=== PATIENT | male | born 1955 | race American Indian/Alaskan Native ===

== ENCOUNTER 2017-10-14 10:40 | Day surgery (SDC) | payer OTHER ==
[~2017-10-14 10:40] MED LIST: DILAUDID IV PRN; NACL 0.9% 1000 ML 1,000 ML IV SCH
--- NOTE | 2017-10-14 11:34 | Anesthesia Day of Surgery ---
Anesthesia Day of Surgery - Day of Surgery Patient Examined: Yes Patient H&P Reviewed: Yes Patient is NPO: Yes Beta Blockers: No Cardiac Clearance: Yes ([place] heart) Pulmonary Clearance: No
--- NOTE | 2017-10-14 11:34 | Anesthesia Consultation ---
Anesthesia Consult and Med Hx Date of service: 10/14/17 - Airway Anesthetic Teeth Evaluation: Poor ROM Head & Neck: Adequate Mental/Hyoid Distance: Adequate Mallampati Class: Class II Intubation Access Assessment: Probably Good - Pulmonary Exam CTA: Yes - Cardiac Exam Cardiac Exam: RRR - Pre-Operative Health Status ASA Pre-Surgery Classification: ASA4 Proposed Anesthetic Plan: General - Pre-Anesthesia Comment Pre-Anesthesia Comments: HX CHF/Hx implantable medtronic monitoring device 3 months ago - Pulmonary Hx Smoking: No Hx Pneumonia: Yes (07/2017- RESOLVED) Hx Sleep Apnea: No (JORDAN PRE SCREEN HIGH RISK) - Cardiovascular System Hx Hypertension: Yes (X 6 YRS) Hx Coronary Artery Disease: Yes Hx Cardia Arrhythmia: Yes (imolantable cardiac monitoring device 3 months ago) - Central Nervous System Hx Neuromuscular Disorder: No (hx of dementia) 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
[2017-10-14 12:37] LABS: Basophils # (Auto) 0.1 K/mm3 (0.0-0.1); Basophils % (Auto) 0.9 % (0.0-1.8); Eosinophils # (Auto) 0.1 K/mm3 (0.0-0.4); Hematocrit 34.2 % (35.5-45.6); Hemoglobin 11.6 gm/dl (11.8-15.2); Lymphocytes # (Auto) 1.6 K/mm3 (1.2-5.4); Lymphocytes % (Auto) 24.8 % (13.4-35.0); Mean Corpuscular HGB Conc 34 % (32-34); Mean Corpuscular Hemoglobin 30 pg (28-32); Mean Corpuscular Volume 87 fl (84-94); Monocytes # (Auto) 0.5 K/mm3 (0.0-0.8); Monocytes % (Auto) 7.3 % (0.0-7.3); Platelet Count 152 K/mm3 (140-440); Red Blood Count 3.92 M/mm3 (3.65-5.03); Red Cell Distribution Width 15.7 % (13.2-15.2)
[2017-10-14 12:49] LABS: Calcium 9.7 mg/dL (8.4-10.2)
[2017-10-14] MEDS ORDERED: ROCEPHIN 1,000 MG in NACL 0.9% 50 ML IV NR (12:53)
[2017-10-14] MEDS ORDERED: XYLOCAINE 1% MPF 5 mL INFILTRATI ONE (12:55)
[2017-10-14] MEDS ORDERED: SUBLIMAZE ONE (13:11)
[2017-10-14] MEDS ORDERED: DIPRIVAN 10 MG/ML IV ONE (13:11)
[2017-10-14] MEDS ORDERED: XYLOCAINE MPF 2% ONE (13:11)
[2017-10-14] MEDS ORDERED: ROCEPHIN/NS 1 GM/50 ML 1 GM/50 ML BAG IV SCH (13:30)
[2017-10-14] MEDS ORDERED: WATER FOR IRRIG STERILE IR ONE ×2 (13:38)
[2017-10-14] MEDS ORDERED: ePHEDrine 50 MG/5 ML-0.9% NACL IV ONE (13:42)
[2017-10-14] MEDS ORDERED: ZOFRAN ONE (14:03)
--- NOTE | 2017-10-14 14:15 | Short Stay Summary ---
Short Stay Documentation Date of service: 10/14/17 - History H&P: obtained from office - Allergies and Medications Current Medications: Allergies No Known Allergies Allergy (Verified 07/08/13 07:31) Home Medications Medication Instructions Recorded Confirmed Last Taken Type Amlodipine Besylate 10 mg PO DAILY 07/08/13 10/03/17 07/06/13 History 5mg Aspirin [Aspirin BABY CHEW TAB] 81 mg PO DAILY 07/08/13 10/03/17 07/07/13 History 81mg Atorvastatin [Lipitor] 80 mg PO HS 07/08/13 10/03/17 07/05/13 History 40mg Metoprolol Xl [Metoprolol 25 mg PO DAILY 07/08/13 10/03/17 07/06/13 History SUCCINATE ER TAB] 25mg Clopidogrel Bisulfate [Plavix] 75 mg PO DAILY 10/03/17 10/03/17 Unknown History Ferrous Sulfate 324 mg PO DAILY 10/03/17 10/03/17 Unknown History Furosemide [Lasix TAB] 40 mg PO BID 10/03/17 10/03/17 Unknown History Quetiapine Fumarate [SEROquel] 50 mg PO QDAY 10/03/17 10/03/17 Unknown History metFORMIN [Glucophage] 500 mg PO QDAY 10/03/17 10/03/17 Unknown History Active Medications Hydromorphone HCl (Dilaudid) 0.25 mg IV Q10MIN PRN PRN Reason: Pain, Moderate (4-6) Stop: 10/14/17 16:00 Sodium Chloride (Nacl 0.9% 1000 Ml) 1,000 mls @ 42 mls/hr IV DIRECT KRISTIN Last Admin: 10/14/17 12:49 Dose: 42 mls/hr Ceftriaxone Sodium (Rocephin/Ns 1 Gm/50 Ml) 1 gm in 50 mls @ 100 mls/hr IV PREOP KRISTIN Stop: 10/14/17 23:59 - Brief post op/procedure progress note Date of procedure: 10/14/17 Pre-op diagnosis: elev psa Post-op diagnosis: same Procedure: cysto rpg prost bx Anesthesia: GETA Findings: PUS 52 cc lg lat lobe w/ some J hooking on rpg Surgeon: IRENE SINGH Estimated blood loss: minimal Pathology: list (prost bx x12) Specimen disposition: to lab Condition: stable - Hospital course Hospital course: or pacu home - Disposition Condition at discharge: Good Disposition: DC-01 TO HOME OR SELFCARE Short Stay Discharge Plan Activity: advance as tolerated Diet: advance as tolerated Follow up with: IRENE SINGH MD [Staff Physician] - 7 Days
[2017-10-14] MEDS ORDERED: D50W (25GM) Syringe IV ONE (15:04)
--- NOTE | 2017-10-14 15:09 | Fluoroscopy Report ---
Retrograde pyelogram: Elevated PSA. Injection of contrast was made bilaterally and the distal ureters. There is good opacification of both ureters and intrarenal collecting systems with no abnormality identified. Impression: Normal exam.
[2017-10-14 18:26] VITALS: BP 142/77
--- NOTE | 2017-10-17 16:34 | Post Anesthesia Evaluation ---
- Post Anesthesia Evaluation Patient Participated: Yes Airway Patent: Yes Stable Respiratory Function: Yes Nausea/Vomiting: No Temp > 96.8F: Yes Pain Manageable: Yes Adequeate Hydration: Yes Anesthesia Complications: No Block Receding Appropriately: No Patient on Ventilator: No
--- NOTE | 2017-10-20 09:05 | Ultrasound Report ---
ULTRASOUND INTRAOPERATIVE GUIDANCE: 10/14/17 CLINICAL: Elevated PSA FINDINGS: Transrectal ultrasound guidance was provided. For more details, please refer to the operative report.
--- NOTE | 2017-11-02 19:33 | Operative Report ---
PREOPERATIVE DIAGNOSES: Elevated PSA and benign prostatic hypertrophy. POSTOPERATIVE DIAGNOSES: Elevated PSA and benign prostatic hypertrophy. PROCEDURES: Cystoscopy, RPG, prostate biopsy. ANESTHESIA: General. FINDINGS: Prostate ultrasound, 52 mL large lateral lobes with some J hooking on RPG. SURGEON: Dylon Pacheco M.D. ESTIMATED BLOOD LOSS: Minimal. PATHOLOGY: Prostate biopsy x 12. SPECIMENS: To lab. CONDITION: Stable. IMPLANTS: None. COMPLICATIONS: None. CLINICAL INDICATIONS: The patient was counseled RCBA, antibiotics, SCDs, counseled options, awake versus anesthetic, cystoscopy and the increased risk and other risks given his comorbidities. He elected only wanted anesthetic and due to some urinary symptoms, elected to proceed, had antibiotics, and SCDs, standard prep. DESCRIPTION OF PROCEDURE: The patient was transferred to OR suite in the supine position, anesthesia, dorsal lithotomy, prepped and draped in standard fashion. A 22-Korean scope passed, normal penile, and bulbar urethra. Upon inspecting the prostatic urethra, there were large not just moderately, but large lateral lobes with mild median lobe and some hooking. At this point, the scope was passed. Pancystoscopy 30 and 70 degree lens demonstrated no tumors, lesions, or other abnormality. Right UO cannulated 8 [place] cone-tipped catheter, contrast injected. Normal right distal ureter, proximal ureter, renal pelvis calyces, repeated on the left side with similar normal findings. Of course, there were no filling defects or hydro, but there was an abnormality on both sides. There was J hooking of both ureters consistent with his BPH and extension towards the bladder, but that was the only abnormality. At this point, the scope was slowly withdrawn. Transrectal ultrasound position in place. Prostate was measured, it was symmetric and homogenous measured 52 mL. At this point, all biopsies were taken. We undertook a standard 12 cores taking a core of the left base, left apex, left lateral base, left lateral mid, left lateral apex, then the identical correlating six biopsies were taken on the right side. At this point, the patient was awakened and transferred to PACU in good and stable condition. JOB# [id number] ATS/NTS
== END 2017-10-14 16:30 | disposition home or self-care (01) ==
LOC: OR 10:40
PROVIDERS: ATTEND Urology
DX: C61 Malignant neoplasm of prostate (principal); E78.00 Pure hypercholesterolemia, unspecified; E11.22 Type 2 diabetes mellitus with diabetic chronic kidney disease; I13.0 Hypertensive heart and chronic kidney disease with heart failure and stage 1 through stage 4 chronic kidney disease, or unspecified chronic kidney disease; N18.9 Chronic kidney disease, unspecified; I50.9 Heart failure, unspecified; G30.9 Alzheimer's disease, unspecified; I25.10 Atherosclerotic heart disease of native coronary artery without angina pectoris; N40.0 Benign prostatic hyperplasia without lower urinary tract symptoms; Z79.82 Long term (current) use of aspirin; Z79.84 Long term (current) use of oral hypoglycemic drugs; Z86.73 Personal history of transient ischemic attack (TIA), and cerebral infarction without residual deficits; Z98.890 Other specified postprocedural states
CPT/HCPCS: 36415; 55700; 74420; 76872; 80048; 82962; 85025; 88305; A4217; C1758; J0696; J1170; J2405; J2704; J3010; J7030; Q9967; 76998